=== PATIENT | male | born 1970 | race Caucasian/White ===

== ENCOUNTER 2016-10-02 15:45 | Inpatient (IN) ==
[2016-10-02] MEDS ORDERED: LIDOCAINE 1% (10mg/ml) 30ml SDV INJ INJ ONE ×2 (17:15→17:26)
[2016-10-02] MEDS ORDERED: DiphenhydrAMINE 50 MG/ML INJECTION IVP PRN (17:53)
[2016-10-02] MEDS ORDERED: ONDANSETRON 4 MG/2 ML INJECTION IVP PRN (17:53)
[2016-10-02] MEDS ORDERED: DiphenhydrAMINE 25 MG CAPSULE PO PRN (17:53)
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
--- NOTE | 2016-10-02 18:47 | Pharmacy Consult-Antibiotics ---
Pharmacy Consult-Vancomycin - Consult Information Consult noted by Harris CRUMP to begin vancomyin therapy on Mr Wellington, who is 46 yo and weighs 73.7kg. He has a septic knee. Will begin vancomycin 1 gram IV q8h. Will continue to monitor and make adjustments accordingly. Trough ordered for 10/04/16. Thank you.
[2016-10-02] MEDS: NS 1,000 ML IV SCH (19:15)
[2016-10-02] MEDS: OXYCODONE/APAP 5 MG/325 MG TABLET PO PRN (19:35)
[2016-10-02] MEDS: ACETAMINOPHEN 325 MG TABLET PO SCH (21:52)
[2016-10-03] MEDS: OXYCODONE/APAP 5 MG/325 MG TABLET PO PRN ×4 (03:39→22:54)
--- NOTE | 2016-10-03 07:37 | Orthopedic Progress Note ---
Date: Subjective/Severity of Illness: Aki states his knee is painful, but manageable with available Percocet. Otherwise, he has no other complaints. Cell count of right knee aspirate yesterday only showed 50 neutrophils. No surgery is planned at this time. He is on Vanco, and infectious disease consult has been ordered. WBC are 12.1 today, he is temp is WNL. Orthopedic Objective Vital signs: Temp Pulse Resp BP Pulse Ox 96.5 F L 68 20 113/65 92 10/03/16 00:00 10/03/16 00:00 10/03/16 00:00 10/03/16 00:00 10/03/16 00:00 Height and Weight: Height 5 ft 1.2 in Weight 162 lb 7.691 oz Body Mass Index 30.4 - Constitutional General Appearance: Present: alert, orientated x3, no acute distress - Respiratory Exam Present: non-labored - Cardiovascular Exam Absent: tachycardia Capillary Refill: < 2-3 Seconds - Abdominal Exam Present: soft. Absent: tenderness - Extremities Exam Present: pulses intact - Knee Exam right Knee Exam: Present: tender along joint line (medial retincaculum), ROM (0-130), stable to ligament exam, effusion (minimal). Absent: Valgus deformity, Varus deformity, painful ROM Comments: area of erythema appear the same size as when evaluated yesterday evening. - Integumentary Exam Present: pink, warm, dry, erythema (right prepatellar bursa) - Neurological Exam Present: intact to light touch, no deficits - Labs Result Diagrams: 10/03/16 04:07 10/03/16 04:07 Abnormal lab results 10/03/16 10/03/16 Range/Units 04:07 04:07 WBC 12.1 H (4.5-11.0) T/MM3 Carbon Dioxide 31 H (22-30) MEQ/L H & H 10/03/16 Range/Units 04:07 Hgb 14.0 (13.5-17.5) GM/DL Hct 43.8 (41-53) % Orthopedic Assessment and Plan (1) Septic prepatellar bursitis of right knee Status: Acute Assessment and Plan: infectious disease consult for optimal antibiotic selection continue Vanco until further directed by Dr. Hernadez continue pain management Hospital Course Summary Disclaimer: The visit summary below is not to be considered part of the above Progress Note.
[2016-10-03] MEDS: NS 1,000 ML IV SCH ×3 (08:51→20:14)
[2016-10-03] MEDS: ACETAMINOPHEN 325 MG TABLET PO SCH ×4 (09:12→22:53)
[2016-10-03] MEDS: POLYETHYL GLYCOL 3350 17gm PACKET PO SCH (09:13)
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
[2016-10-03] MEDS: LISINOPRIL 2.5 MG TABLET PO SCH (10:31)
[2016-10-03] MEDS: CEFTRIAXONE 2 GM in NS 100 ML IV SCH (13:39)
[2016-10-03] MEDS: CLOPIDOGREL 75 MG TABLET PO SCH (18:31)
[2016-10-03] MEDS: EZETIMIBE 10 MG TABLET PO SCH (18:31)
[2016-10-03] MEDS: ASPIRIN 325 MG TABLET PO SCH (18:31)
[2016-10-03] MEDS ORDERED: ATORVASTATIN 40 MG TABLET PO SCH (22:00)
[2016-10-03] MEDS: ROSUVASTATIN 20 MG TABLET PO SCH (22:54)
[2016-10-04] MEDS: NS 1,000 ML IV SCH ×3 (04:15→21:52)
[2016-10-04] MEDS: HYDROMORPHONE 2 MG/ML INJECTION IVP PRN ×7 (06:57→16:41)
[2016-10-04] MEDS: LISINOPRIL 2.5 MG TABLET PO SCH (08:59)
[2016-10-04] MEDS: ACETAMINOPHEN 325 MG TABLET PO SCH ×4 (08:59→22:52)
[2016-10-04] MEDS: ASPIRIN 325 MG TABLET PO SCH (08:59)
[2016-10-04] MEDS: POLYETHYL GLYCOL 3350 17gm PACKET PO SCH (08:59)
[2016-10-04] MEDS: CLOPIDOGREL 75 MG TABLET PO SCH (08:59)
[2016-10-04] MEDS: EZETIMIBE 10 MG TABLET PO SCH (09:00)
--- NOTE | 2016-10-04 09:14 | XRay Report ---
Indication: PRE-MRI EXAM PROCEDURE: XR orbit BI for MRI: Encounter: Initial Comparison: None Findings/ Impression: No metallic foreign bodies identified projecting over the orbits. .
[2016-10-04] MEDS ORDERED: SALINE FLUSH 10ml SYRINGE ONE (09:44)
[2016-10-04] MEDS ORDERED: GADOBUTROL 10mMol/10ml INJECTION IVP ONE (09:44)
--- NOTE | 2016-10-04 11:04 | Magnetic Resonance Report ---
Indication: Right knee pain and swelling, concern for possible abscess PROCEDURE: MR knee RT wo/w con: Encounter: Initial Comparison: None Technique: Multiplanar multisequence MR imaging of the right knee was performed with and without contrast. Contrast: 7.5 mL Gadavist Findings: Bone marrow signal intensity is within normal limits. No acute fracture identified. There is significant soft tissue swelling and edema in the lateral and anterior soft tissues overlying the patella. There is also some posterior subcutaneous edema and fluid as well. Muscular signal intensity is within normal limits. There is a small nonenhancing T1 hypointense region at the area of palpable marker in the prepatellar soft tissues on axial postcontrast image #13 measuring 1 x 0.5 cm in size. This extends for 3.5 cm craniocaudally on sagittal image #20.This does not show obvious fluid signal intensity however on the fluid sensitive sequences. Exam was not tailored for evaluation of the ligaments or menisci. The ACL, PCL, MCL and lateral collateral ligament complex are grossly intact. There is evidence of a horizontal tear of the posterior horn medial meniscus. Mild cartilage loss in the medial compartment. Impression: Significant subcutaneous edema overlying the anterior and lateral aspects of the knee at the level of the patella consistent with cellulitis. There is a thin nonenhancing region at the area of indicated clinical concern suspicious for a small abscess as measured above. .
[2016-10-04] MEDS: CEFTRIAXONE 2 GM in NS 100 ML IV SCH (11:23)
--- NOTE | 2016-10-04 12:05 | Orthopedic Progress Note ---
Date: Subjective/Severity of Illness: Overall Mr. Wellington is better on antibiotics still having significant right knee pain. Orthopedic Objective Vital signs: Temp Pulse Resp BP Pulse Ox 96.3 F L 66 16 118/69 96 10/04/16 08:00 10/04/16 08:00 10/04/16 08:00 10/04/16 08:00 10/04/16 08:00 Height and Weight: Height 5 ft 1.2 in Weight 75.5 kg Body Mass Index 30.4 - Constitutional General Appearance: Present: alert, orientated x3 - Respiratory Exam Present: non-labored - Cardiovascular Exam Capillary Refill: < 2-3 Seconds - Abdominal Exam Present: soft. Absent: tenderness - Extremities Exam Present: pulses intact, joint swelling (Right knee pain and swelling) Comments: Bright erythema over the anterior knee with a small pustule present without drainage. The overall erythema globally about the knee has improved but has concentrated more anteriorly. - Knee Exam right Knee Exam: Present: tender along joint line (medial retincaculum), ROM (0-130), stable to ligament exam, effusion (minimal). Absent: Valgus deformity, Varus deformity, painful ROM - Integumentary Exam Present: warm, dry, erythema (right prepatellar bursa) - Neurological Exam Present: intact to light touch, no deficits - Labs Result Diagrams: 10/04/16 04:17 10/04/16 04:17 Abnormal lab results 10/02/16 10/03/16 10/04/16 Range/Units 17:47 11:59 04:17 Carbon Dioxide 31 H (22-30) MEQ/L Creatinine 0.7 L (0.8-1.5) MG/DL C-Reactive Protein 38.3 H (0-9) MG/L Fluid Crystal Appear Cloudy A Fluid Crystal Color Red A Vancomycin Trough (15-20) UG/ML 10/04/16 Range/Units 04:17 Carbon Dioxide (22-30) MEQ/L Creatinine (0.8-1.5) MG/DL C-Reactive Protein (0-9) MG/L Fluid Crystal Appear Fluid Crystal Color Vancomycin Trough 7.08 L (15-20) UG/ML H & H 10/03/16 10/04/16 Range/Units 04:07 04:17 Hgb 14.0 13.6 (13.5-17.5) GM/DL Hct 43.8 42.1 (41-53) % - Diagnostic results Knee MRI: report reviewed, image reviewed Orthopedic Assessment and Plan (1) Septic prepatellar bursitis of right knee Status: Acute Assessment and Plan: MRI is suggestive for a fluid collection. This correlates with his exam today. Because he has not seen significant improvement of his erythema anteriorly with IV antibiotics and with these new imaging results I did recommend incision and drainage of abscess. Due to the patient's discomfort with exam he would like to have this done under general anesthesia. I'm agreeable to this. He is nothing by mouth we will add him on to the schedule to do early this afternoon. I reviewed with him the risks and benefits of the surgery and agree with this plan. (2) Leukocytosis Status: Acute (3) CAD (coronary artery disease) Status: Chronic (4) HTN (hypertension) Status: Chronic (5) Hypercholesterolemia Status: Chronic (6) Tobacco dependence Status: Chronic Hospital Course Summary Disclaimer: The visit summary below is not to be considered part of the above Progress Note.
[2016-10-04] MEDS ORDERED: MIDAZOLAM 2mg/2ml INJECTION ONE (14:54)
[2016-10-04] MEDS ORDERED: FentaNYL 100 MCG/2 ML INJECTION ONE (14:54)
[2016-10-04] MEDS ORDERED: PROPOFOL 500 MG/50 ML VIAL IV ONE (14:54)
--- NOTE | 2016-10-04 15:40 | Post Procedure Note ---
Date of Procedure: 10/04/16 Orthopedic Surgeon: Ambar Orthopedic Assisting Surgeon: Saturnino Delgado Anesthesia: General TIVA Procedure: Procedures Operation Date: 10/04/16 15:00 <No data on this case meets the specified criteria> I&D right knee abscess. Condition: Stable Disposition: floor (resume IV antibiotics. Cultures obtained intra op.)
[2016-10-04] MEDS ORDERED: KETOROLAC 30 MG/ML INJECTION IVP PRN (15:49)
--- NOTE | 2016-10-04 17:03 | Anesthesia Preoperative Report ---
Anesthesia Preoperative Record - Date and Time Date: 10/04/16 Preoperative Diagnosis: Right knee infection Proposed Procedure: right knee I & D NPO Since Date: 10/03/16 NPO Since Time: 23:00 Allergies/Adverse Reactions: Allergies Allergy/AdvReac Type Severity Reaction Status Date / Time No Known Drug Allergies Allergy Verified 10/04/16 08:54 No Known Drug Intolerances AdvReac Verified 10/04/16 09:20 - Vital Signs Vital Signs: Temp Pulse Resp BP Pulse Ox 97.8 F 59 L 15 123/69 97 10/04/16 15:41 10/04/16 16:25 10/04/16 16:25 10/04/16 16:25 10/04/16 16:25 Height and Weight: Height 5 ft 1.2 in Weight 75.5 kg Body Mass Index 30.4 - Medications Inpatient Medications: Current Medications Acetaminophen (Tylenol) 650 mg PO QID [facility] Last Admin: 10/04/16 08:59 Dose: Not Given Aspirin (Asa) 325 mg PO DAILY [facility] Last Admin: 10/04/16 08:59 Dose: Not Given Clopidogrel Bisulfate (Plavix) 75 mg PO DAILY [facility] Last Admin: 10/04/16 08:59 Dose: Not Given Diphenhydramine HCl (Benadryl) 25 mg IVP Q6HR PRN PRN Reason: Itching Diphenhydramine HCl (Benadryl) 25 mg PO Q6H PRN PRN Reason: Itching Ezetimibe (Zetia) 10 mg PO DAILY [facility] Last Admin: 10/04/16 09:00 Dose: Not Given Hydromorphone HCl (Dilaudid) 0.5 - 1 mg IVP Q1H PRN PRN Reason: Pain Last Admin: 10/04/16 12:17 Dose: 1 mg Hydromorphone HCl (Dilaudid) 0.5 mg IVP Q10M PRN PRN Reason: Pain Last Admin: 10/04/16 16:41 Dose: 0.5 mg Sodium Chloride (Normal Saline) 1,000 mls @ 80 mls/hr IV .[id number] [facility] Last Infusion: 10/04/16 11:23 Dose: 80 mls/hr Ceftriaxone Sodium 2 gm/ (Sodium Chloride) 100 mls @ 200 mls/hr IV DAILY [facility] Last Infusion: 10/04/16 11:53 Dose: Infused Vancomycin HCl 2,000 mg/ (Sodium Chloride) 500 mls @ 250 mls/hr IV Q8H [facility] Last Infusion: 10/04/16 16:25 Dose: Infused Ketorolac Tromethamine (Toradol Inj) 30 mg IVP O PRN PRN Reason: Pain Stop: 10/09/16 15:50 Last Admin: 10/04/16 15:58 Dose: 30 mg Lisinopril (Prinivil) 2.5 mg PO DAILY [facility] Last Admin: 10/04/16 08:59 Dose: Not Given Metoprolol Tartrate (Lopressor) 25 mg PO BIDWM [facility] Last Admin: 10/04/16 12:58 Dose: 25 mg Ondansetron HCl (Zofran) 4 mg IVP Q4H PRN PRN Reason: Nausea &/or vomiting Oxycodone/Acetaminophen (Percocet 5/325) 1 - 2 tab PO Q4H PRN PRN Reason: Pain Last Admin: 10/03/16 22:54 Dose: 2 tab Polyethylene Glycol (Miralax) 17 gm PO DAILY [facility] Last Admin: 10/04/16 08:59 Dose: Not Given Rosuvastatin Calcium (Crestor) 40 mg PO HS [facility] Last Admin: 10/03/16 22:54 Dose: 40 mg Home Medications: Home Medications Medication Instructions Recorded Confirmed Type Aspirin 325 mg PO DAILY #0 tab 11/21/14 10/03/16 History Clopidogrel Bisulfate [Plavix] 1 tab PO DAILY #0 11/21/14 10/03/16 History LORazepam [Lorazepam] 1 tab PO TID PRN #0 tab 11/21/14 History Metoprolol Tartrate 25 mg PO BIDWM #0 tab 11/21/14 10/03/16 History Nitroglycerin 0.4 mg SL Q5MIN PRN #0 tab 11/21/14 History Ezetimibe [Zetia] 10 mg PO DAILY 10/03/16 10/03/16 History Lisinopril [Prinivil] 5 mg PO DAILY 10/03/16 10/03/16 History Rosuvastatin Calcium 40 mg PO DAILY 10/03/16 10/03/16 History Is Patient on Beta Greg?: Yes - Medical History Respiratory: DENIES: Asthma Cardiovascular: Reports: Coronary Artery Disease (stents), Hypertension Gastrointestional: DENIES: Gastroesophageal Reflux Disease Other History: DENIES: Anesthesia Reactions - Surgical History Cardiac Surgeries/Treatments: Reports: Other (STENT X2 IN 2014) Anesthesia Reactions: None Hx Family Anesthesia Reaction: No History of Motion Sickness: No - Social History Smoking Status: Current every day smoker (1/2 to 1 PPD) Hx Chewing Tobacco Use: No Substance Use Type: does not use - Pertinent Findings Laboratory: CBC and BMP 10/04/16 04:17 10/04/16 04:17 BMP 10/04/16 04:17 Sodium 140 Potassium 4.3 Chloride 101 Carbon Dioxide 31 H BUN 11.0 Creatinine 0.7 L Glucose 99 Calcium 9.0 EKG Rhythm: Normal Sinus Rhythm - Physical Exam Respiratory Exam: Present: lungs clear Cardiovascular Exam: Present: regular rate and rhythm - Airway Assessment Mallampati Score: II TMD: 3 Fingerbreadths Neck Extension: good Teeth: other (missing teeth, cracked/broken teeth) Overall Assessment: no airway concerns - ASA ASA Score: 2 - Plan Anesthesia: General TIVA - Discussion Discussion: Discussed risks/options/alternatives of anesthesia and questions answered. Patient consents. Nursing pain assessment noted. Present for Discussion: spouse Attestation Statement: Prior to the delivery of any anesthetic medication, I examined the patient, developed the plan, obtained the patient's consent and discussed the risk and benefits of the procedure with the patient/guardian. - Additional Information Seen by Anesthesia: Yes
--- NOTE | 2016-10-04 18:12 | Progress Note ---
Subjective: Pt reports his knee is not much better. Pain, redness is about the same. Denies any f/c, cp or sob. Objective Vital signs: Temp Pulse Resp BP Pulse Ox 98.5 F 57 L 11 111/68 94 10/04/16 16:59 10/04/16 16:55 10/04/16 16:55 10/04/16 16:55 10/04/16 16:55 Weight: 75.5 kg - Constitutional Present: no acute distress, well nourished - Routine HEENT Exam Head: Present: normocephalic, atraumatic Eye: Present: EOMI ENT: Present: mucous membranes moist - Routine Respiratory Exam Present: CTA bilaterally. Absent: wheezes - Routine Cardiovascular Exam Present: RRR, no murmur - Routine Abdominal Exam Present: soft, non distended, non tender - Routine Extremities Exam Present: no edema, joint swelling. Absent: cyanosis, clubbing Comments: right knee erythematous and mildly swollen - Routine Musculoskeletal Exam Musculoskeletal: joint swelling, limited range of motion - Routine Skin Exam Present: intact, dry - Routine Neurological Exam Present: alert, oriented X3 Results - Labs CBC & Chem 7: 10/04/16 04:17 10/04/16 04:17 Assessment and Plan (1) Septic prepatellar bursitis of right knee Current visit: Yes Status: Acute (2) CAD (coronary artery disease) Current visit: Yes Status: Chronic (3) HTN (hypertension) Current visit: Yes Status: Chronic (4) Hypercholesterolemia Current visit: Yes Status: Chronic (5) Tobacco dependence Current visit: Yes Status: Chronic (6) Leukocytosis Current visit: Yes Status: Acute Assessment and Plan: Septic Arthritis -Synovial fluid consistent with infection-->123K WBC, neutrophil 50%, crystal studies and cx pending, gs negative -On IV vanc, added rocephin for G- coverage -Blood cx's NGTD crp/esr elevated -MRI pending today, possibly going to surgery later today? -Less likely gonococcal or inflammatory at this point but will do work up if gs/ cx's negative and pt not improving on abx -Ortho following CAD -Cont. ASA, holding plavix for possible surgery -Cont. metoprolol HTN -Holding Lisinopril d/t possible surgery HLD -Cont. home zetia, crestor Sepsis Assessment - Evaluation Sepsis screening result: No Definite Risk Hospital Course Summary Disclaimer: The visit summary below is not to be considered part of the above Progress Note.
[2016-10-04] MEDS: OXYCODONE/APAP 5 MG/325 MG TABLET PO PRN ×2 (18:33→22:52)
--- NOTE | 2016-10-04 18:34 | Anesthesia Postoperative Note ---
- Date and Time Date: 10/04/16 Time: 17:05 - Status Patient Participated in Evaluation: Patient Participated in Person Vital Signs: Temp Pulse Resp BP Pulse Ox 97.3 F 68 15 126/79 97 10/04/16 17:13 10/04/16 18:13 10/04/16 17:13 10/04/16 18:13 10/04/16 18:13 Respiratory Function: Airway Patent Cardiovascular Function: Regular Pulse EKG Rhythm: Normal Sinus Rhythm Mental Status: Alert and Oriented Pain Intensity: 2 Hydration: IV Infusing Complications During Recover: None Apparent - Follow-Up Instructions Instructions: Per Surgeon
--- NOTE | 2016-10-04 19:17 | Operative Note ---
- Procedure Date of Admission: 10/04/16 Side: right Preoperative Diagnosis: other (septic prepatellar bursitis) Postoperative Diagnosis: Same as preoperative diagnosis. Operation: other (incision and drainage of septic prepatellar bursitis) Surgeon: Maryan Villalta MD Customer Supply Coordinator: ALISIA Macedo Complications: None. Anesthesia: General TIVA Estimated Blood Loss: See Anesthesia Record. Fluids: Please see Anesthesia Record. Description of Procedure: Mr. Wellington in his right knee were identified and marked in the preoperative holding area. He was brought back to the operating suite and placed on the operating table in the supine position. He was placed under general anesthesia and right lower extremity was prepped and draped in normal sterile fashion. Timeout was performed. Patient had a pustule over the anterior knee and began by making a 1 cm incision sharply starting at the special site moving proximally until I encountered flow of fasciitis material. I then took a swab of this material sent for culture. I placed Sara through the incision and there was definitely a pocket approximately 4 cm x 3 cm. I made a second stab incision at the most proximal aspect of this pocket. I then curetted out the pocket. I then irrigated the prepatellar bursa with normal saline first using bulb syringe and then using cystoscopy tubing placing approximately a liter and half of fluid through the wound. I then placed 1 inch iodoform gauze in one incision out the other and tied them to each other. The wound was then dressed with Kerlix and an Hayden wrap the drapes removed and the patient was allowed to awake from general anesthesia and taken recovery room in the care of anesthesia he tolerated procedure well and there were no complications.
[2016-10-04] MEDS: ROSUVASTATIN 20 MG TABLET PO SCH (22:52)
[2016-10-05] MEDS: OXYCODONE/APAP 5 MG/325 MG TABLET PO PRN ×2 (02:53→15:25)
[2016-10-05] MEDS: HYDROMORPHONE 2 MG/ML INJECTION IVP PRN (08:35)
--- NOTE | 2016-10-05 08:51 | Orthopedic Progress Note ---
Date: Subjective/Severity of Illness: Mr. Wellington is alert and oriented this morning in no acute distress. He states his knee pain is improved. Denies fever or chills. Orthopedic Objective Vital signs: Temp Pulse Resp BP Pulse Ox 96.5 F L 58 L 18 122/69 97 10/05/16 07:26 10/05/16 07:26 10/05/16 07:26 10/05/16 07:26 10/05/16 07:26 Height and Weight: Height 5 ft 1.2 in Weight 75 kg Body Mass Index 30.4 - Constitutional General Appearance: Present: alert, orientated x3 - Respiratory Exam Present: non-labored - Cardiovascular Exam Present: pedal pulses intact Capillary Refill: < 2-3 Seconds - Extremities Exam Present: cyanosis, clubbing, joint swelling - Knee Exam right Knee Exam: Present: Valgus deformity, Varus deformity, painful ROM - Surgical Site right anterior knee Surgical Site Comments: Erythema has improved. No drainage from either incision site. Swelling is also improved - Integumentary Exam Present: warm, dry, erythema (right prepatellar bursa) - Neurological Exam Present: intact to light touch, no deficits - Psychiatric Exam Present: alert - Labs Result Diagrams: 10/05/16 04:33 10/05/16 04:33 Abnormal lab results 10/05/16 10/05/16 Range/Units 04:33 04:33 WBC 11.1 H (4.5-11.0) T/MM3 Hgb 13.3 L (13.5-17.5) GM/DL Neut % (Auto) 70.0 H (33-66) % Lymph % (Auto) 16.5 L (23-45) % Wells % (Auto) 9.5 H (0-9.0) % Neut # 7.8 H (1.8-7.7) T/MM3 Wells # 1.1 H (0-0.8) T/MM3 Potassium 5.2 H D (3.6-5) MEQ/L Carbon Dioxide 31 H (22-30) MEQ/L Creatinine 0.7 L (0.8-1.5) MG/DL H & H 10/03/16 10/04/16 10/05/16 Range/Units 04:07 04:17 04:33 Hgb 14.0 13.6 13.3 L (13.5-17.5) GM/DL Hct 43.8 42.1 41.7 (41-53) % Orthopedic Assessment and Plan (1) Septic prepatellar bursitis of right knee Status: Acute Assessment and Plan: Clinically has improved after surgical drainage of the abscess yesterday. We will discharge him today on IV vancomycin. Like to see him in clinic on Friday or he is to call sooner with any problems or concerns. He received a PICC line today. Vancomycin will be managed by [facility]. (2) Leukocytosis Status: Acute (3) CAD (coronary artery disease) Status: Chronic (4) HTN (hypertension) Status: Chronic (5) Hypercholesterolemia Status: Chronic (6) Tobacco dependence Status: Chronic Hospital Course Summary Disclaimer: The visit summary below is not to be considered part of the above Progress Note.
--- NOTE | 2016-10-05 09:03 | Discharge Summary ---
Discharge Plan - Med Rec/Dispo Referrals/Follow Up: Arthur Villalta MD [Physician] - 10/09/16 10:00 am Jesus Instructions: [facility] Ortho Postop Instructions Prescriptions: New Oxycodone/APAP 5/325 [Percocet 5/325] 1 - 2 tab PO Q4H PRN #30 tablet PRN Reason: Pain Continue Aspirin 325 mg PO DAILY #0 tab LORazepam [Lorazepam] 1 tab PO TID PRN #0 tab PRN Reason: ANXIETY Nitroglycerin 0.4 mg SL Q5MIN PRN #0 tab PRN Reason: CHEST PAIN Rosuvastatin Calcium 40 mg PO DAILY Ezetimibe [Zetia] 10 mg PO DAILY Metoprolol Tartrate 25 mg PO BIDWM #0 tab Clopidogrel Bisulfate [Plavix] 1 tab PO DAILY #0 Lisinopril [Prinivil] 5 mg PO DAILY - Disposition 01 Discharged Home, Self-Care
[2016-10-05] MEDS: CLOPIDOGREL 75 MG TABLET PO SCH (10:48)
[2016-10-05] MEDS: ASPIRIN 325 MG TABLET PO SCH (10:48)
[2016-10-05] MEDS: ACETAMINOPHEN 325 MG TABLET PO SCH ×2 (10:49→14:26)
[2016-10-05] MEDS: LISINOPRIL 2.5 MG TABLET PO SCH (10:49)
[2016-10-05] MEDS: EZETIMIBE 10 MG TABLET PO SCH (10:49)
[2016-10-05] MEDS: CEFTRIAXONE 2 GM in NS 100 ML IV SCH (10:50)
[2016-10-05] MEDS: POLYETHYL GLYCOL 3350 17gm PACKET PO SCH (10:59)
--- NOTE | 2016-10-05 11:27 | Progress Note ---
<Zhane Humphrey V - Last Filed: 10/05/16 11:20> Subjective: Aki is seen this morning in follow up consultation. He is preparing to receive a PICC line for outpatient IV antibiotics. He underwent I & D of of septic prepatellar bursitis yesterday afternoon by Dr Villalta. He tolerated this well. Synovial fluid did reveal Staph Aureus. He did have a brief episode of bradycardia overnight while sleeping that decreased to 45 however has maintained 50-80 during hospital stay. No palpitations or chest pain. Denies any other concerns. Objective Vital signs: Temp Pulse Resp BP Pulse Ox 96.5 F L 58 L 18 122/69 97 10/05/16 07:26 10/05/16 07:26 10/05/16 07:26 10/05/16 07:26 10/05/16 07:26 Weight: 75 kg - Constitutional Present: no acute distress, well nourished - Routine HEENT Exam Head: Present: normocephalic, atraumatic Eye: Present: EOMI, PERRL - Routine Respiratory Exam Present: CTA bilaterally - Routine Cardiovascular Exam Present: RRR, S1, S2 - Routine Abdominal Exam Present: soft, normoactive bowel sounds - Routine Extremities Exam Comments: Right knee pain - Routine Musculoskeletal Exam Musculoskeletal: normal strength, other (Right knee pain) - Routine Skin Exam Present: intact, warm - Routine Neurological Exam Present: alert, oriented X3, CN II-XII intact - Routine Psychiatric Exam Present: normal affect, normal thought process Results - Labs CBC & Chem 7: 10/05/16 04:33 10/05/16 04:33 Assessment and Plan (1) Septic prepatellar bursitis of right knee Current visit: Yes Status: Acute (2) Leukocytosis Current visit: Yes Status: Acute (3) CAD (coronary artery disease) Current visit: Yes Status: Chronic (4) HTN (hypertension) Current visit: Yes Status: Chronic (5) Hypercholesterolemia Current visit: Yes Status: Chronic (6) Tobacco dependence Current visit: Yes Status: Chronic (7) Staph aureus infection Current visit: Yes Status: Acute Assessment and Plan: 10/05 Septic Arthritis -Synovial fluid consistent with infection, revealing staph aureus culture. -Continue on On IV vancomycin and Rocephin. Case management did set up outpatient infusion to be performed at [facility] in [place] Patient receiving PICC line currently. CAD -Cont. ASA, Plavix resumed this morning. -Cont. metoprolol, monitor for bradycardia. HTN -Continue with lisinopril HLD -Cont. home zetia, crestor Planning for discharge later today under the care of Dr. Villalta. Patient appears medically stable for discharge Sepsis Assessment - Evaluation Sepsis screening result: No Definite Risk Hospital Course Summary Disclaimer: The visit summary below is not to be considered part of the above Progress Note. Hospital Course: 10/05/16 11:30 10/05 Septic Arthritis -Synovial fluid consistent with infection, revealing staph aureus culture. -Continue on On IV vancomycin and Rocephin. Case management did set up outpatient infusion to be performed at [facility] in [place] Patient receiving PICC line currently. CAD -Cont. ASA, Plavix resumed this morning. -Cont. metoprolol, monitor for bradycardia. HTN -Continue with lisinopril HLD -Cont. home zetia, crestor Planning for discharge later today under the care of Dr. Villalta. Patient appears medically stable for discharge <Mari Gama - Last Filed: 10/05/16 17:03> Objective Vital signs: Temp Pulse Resp BP Pulse Ox 98.6 F 76 18 136/72 97 10/05/16 12:11 10/05/16 12:11 10/05/16 12:11 10/05/16 12:11 10/05/16 12:11 Results - Labs CBC & Chem 7: 10/05/16 04:33 10/05/16 04:33 Assessment and Plan (1) Septic prepatellar bursitis of right knee Current visit: Yes Status: Acute (2) CAD (coronary artery disease) Current visit: Yes Status: Chronic (3) HTN (hypertension) Current visit: Yes Status: Chronic (4) Hypercholesterolemia Current visit: Yes Status: Chronic (5) Tobacco dependence Current visit: Yes Status: Chronic (6) Leukocytosis Current visit: Yes Status: Acute (7) Staph aureus infection Current visit: Yes Status: Acute Assessment and Plan: I have independently evaluated and examined this patient. I reviewed the chart, the patient's history, and the DIRECTOR TELEMETRY's documented findings as above. We discussed and formulated the assessment and plan as above with additions as below: Mr. Wellington was doing well with seen. He reported knee pain is significantly improved after I&D yesterday. He has been able to ambulate and weight-bear on the right leg today. He denied fever overnight. Patient is alert and fully oriented. Respirations are nonlabored with good airflow and clear breath sounds. Cardiac rhythm regular. Discussed with case management-PICC line being placed permit IV antibiotics. To follow-up with Dr. Villalta in the outpatient office. Stable for discharge from my perspective. Hospital Course Summary Disclaimer: The visit summary below is not to be considered part of the above Progress Note.
--- NOTE | 2016-10-08 17:29 | Discharge Summary ---
Orthopedic Discharge Info Date of admission: 10/04/16 12:42 Anticipated date of discharge: 10/05/16 Primary care physician: Kee Abad APRN Attending Physician: Arthur Villalta MD Consults: 10/02/16 17:48 Physician Consult [CONS] Routine Consulting Provider: Sergio Duval Reason For Exam: medical management Ordering Provider has Notified Home Paraprofessional: No 10/02/16 17:54 Case Management Consult [CONS] Routine Reason For Exam: Discharge Planning 10/02/16 17:55 Pharmacy Consult [CONS] Routine Pharmacy Consult: Vancomycin Comment: manage dose and peak/trough 10/03/16 07:21 Physician [Physician Consult] [CONS] Routine Consulting Provider: Nellie Hernadez Reason For Exam: right knee infective prepatellar bursitis Ordering Provider has Notified Home Paraprofessional: No Comment: antibiotic coverage - Discharge Diagnosis (1) Septic prepatellar bursitis of right knee Status: Acute - Laboratory Result Diagrams: 10/05/16 04:33 10/05/16 04:33 Laboratory: H & H 10/03/16 10/04/16 10/05/16 Range/Units 04:07 04:17 04:33 Hgb 14.0 13.6 13.3 L (13.5-17.5) GM/DL Hct 43.8 42.1 41.7 (41-53) % - Microbiology Microbiology 10/03/16 11:56 Peripheral/Iv Start Blood Culture - Final No Growth After 5 Days 10/03/16 11:59 Peripheral/Iv Start Blood Culture - Final No Growth After 5 Days 10/02/16 17:47 Synovial Fluid, Right Knee Gram Stain - Final 10/02/16 17:47 Synovial Fluid, Right Knee Body Fluid Culture - Final No Growth After 5 Days 10/04/16 15:28 Knee, Right Gram Stain - Final 10/04/16 15:28 Knee, Right Abscess Culture - Final Staphylococcus aureus, MRSA Orthopedic Discharge HPI - HPI Elements right anterior knee Pain: throbbing, ache Onset: sudden Radiating: No Severity: moderate Duration: several days How Often Does Pain Occur: constant Previous Surgery: No Previous Injury: No Aggrevated by: squatting, other (kneeling) Associated Symptoms: swelling, warmth, no fever, no chills, no numbness Treatments Tried: pain medications (Percocet), rest Recommendation: other (aspiration of the knee to evaluate for septic arthritis versus infective bursitis.) - HPI Comments Aki Wellington is a pleasent 46 year old male who [place] [facility] [place] admit from [facility]. Aki's chief complaint is right knee pain. Onset was 09/28/16 when he was out in his yard and felt he may have been stuck by a fabiola rojas in the anterior aspect of his right knee. His knee was initially just irritated but began to get red and inflammed 09/30/16. He didn't seek care until 10/02/16 when he presented to Dr. Ilya Borjas at [facility]. Dr. Cruz's admitted him to [facility] and worked him up with knee X-rays, BMP, CRP, CBC with diff, ESR. BMP was unremarkable, CBC showed WBC of 13.6 with 82.0 neutrophils, ESR was 8. According to Dr. Cruz's X- rays were negative for fracture but a puncuate density was noted anterior to the tibial spine. Aspiration was "unsuccessful". Labs were drawn and then Vancomyacin (at 09:30 10/02/16) and Ceftriaxone (at 11:30 10/02/16) was administered. Dr. Gardunos then spoke to ALISIA Encarnacion promotions coordinator and ortho agreed to admit for further evaluation and treatment. Aki states his pain is presently manageable. He did get a Percocet prior to his transfer here. His pain is located in the prepatellar area. He has been able to bear weight consistently since his knee was poked. However, pain has progressively gotten worse since last Friday. He denies any recent open sores , dental work, dysuria, or presence of prosthetic valve. He has not had any previous surgery on his knee. Orthopedic Hospital Course Hospital course: 10/08/16 17:24 Pt was admitted for suspected infected pre patellar bursitis of the right knee. Aspiration of the knee joint was done to r/o joint involvement and those cultures have remained without growth. Pt was given IV antibiotics but the cellulitis was slow to resolve. MRI was done and a small abscess was found in the SQ / bursal tissue over the right knee. It was then decided this should be irrigated out surgically. He was taken to the operating room on 10/04/16 and underwent I&D of the involved prepatellar bursa. A vasiliy drain was placed at the time of surgery. Intra operative cultures were taken. They have grown out Staph A (MRSA) from the abscess site, but NOT from the knee joint. Following surgery, pt was given a PICC line and IV Vancomycin was continued. Appropriate anticoagulants were initiated and SCDs added for DVT prevention. The dressing was clean, and dry at discharge. Pain control was obtained via multimodal approach. Bowel motivation addressed with scheduled and PRN medications. Early mobilization was initiated through PT services. Discharge arrangements made by a collaborative effort between the patient and Case Management. He will get out patient IV vanco in [place]. F/U in orthopedic clinic next week. Follow-up is scheduled next week. Discharge instructions given by orthopedic providers and nursing staff at discharge. Discharge condition was good. 10/08/16 17:32 Ongoing care required?: Yes Comments: F/U 10/09/16 in ortho clinic. Cont IV Vanco at the hospital in [place]. PICC line care per protocol. Discharge Plan - Med Rec/Dispo Referrals/Follow Up: Arthur Villalta MD [Physician] - 10/09/16 10:00 am Jesus Instructions: [facility] [place] Postop Instructions Additional Instructions: GO TO [facility] FOR IV ANTIBIOTICS EVERY 8 HOURS BEGINNING OCTOBER 05 AT 11:00 PM. Prescriptions: New Oxycodone/APAP 5/325 [Percocet 5/325] 1 - 2 tab PO Q4H PRN #30 tablet PRN Reason: Pain Continue Aspirin 325 mg PO DAILY #0 tab LORazepam [Lorazepam] 1 tab PO TID PRN #0 tab PRN Reason: ANXIETY Nitroglycerin 0.4 mg SL Q5MIN PRN #0 tab PRN Reason: CHEST PAIN Rosuvastatin Calcium 40 mg PO DAILY Ezetimibe [Zetia] 10 mg PO DAILY Metoprolol Tartrate 25 mg PO BIDWM #0 tab Clopidogrel Bisulfate [Plavix] 1 tab PO DAILY #0 Lisinopril [Prinivil] 5 mg PO DAILY - Disposition 01 Discharged Home, Self-Care
== END 2016-10-05 17:10 | disposition home or self-care (01) | DRG 549 ==
LOC: PREOBSVTOIN 17:01 → INTOOBSV 17:02 → SRG 17:02
PROVIDERS: ADMIT Orthopaedic Surgery; ATTEND Orthopaedic Surgery

== ENCOUNTER 2017-07-05 04:23 | Inpatient (IN) ==
[2017-07-05] MEDS ORDERED: MORPHINE SULFATE 4mg INJECTION IVP PRN (05:12)
[2017-07-05] MEDS ORDERED: ONDANSETRON 4 MG/2 ML INJECTION IVP PRN (05:12)
[2017-07-05] MEDS ORDERED: NS 1,000 ML IV SCH (05:15)
--- OUTSIDE RECORDS SUMMARY | 2017-07-05 05:34 | External Medical Summary | CCD ---
:1970 Author Name DEANN CASE Address [address], [place] [id number] Care Team Providers Name Role Phone LEONARDA MENDENHALL Attending Physician Unavailable ANDER CAMPOS (Secondary) Physician Unavailable Vital Signs Unknown or Not Available. Allergies Allergy Code Allergy Type Reaction Status No Known Drug 0 No known drug Active Allergies allergies Procedures Unknown or Not Available. History of Immunizations Unknown or Not Available. Problems Unknown or Not Available. Results HEPATIC FUNCTION - Collect Date/Time: 11/09/2015 07:50 Test Name Code Test Result Test Units Test Ref Range AST 18 U/L L=15 H=37 ALT 28 U/L L=12 H=78 ALKALINE PHOS 91 U/L L=46 H=116 TOTAL PROTEIN 7.1 g/dL L=6.4 H=8.2 ALBUMIN 3.6 g/dL L=3.4 H=5.0 TOTAL BILI 0.40 mg/dL L=0.00 H=1.00 DIRECT BILI 0.10 mg/dL L=0.00 H=0.30 LIPID PANEL - Collect Date/Time: 11/09/2015 07:50 Test Name Code Test Result Test Units Test Ref Range CHOLESTEROL 196 mg/dL L=0 H=200 TRIGLYCERIDES 151 mg/dL L=30 H=150 HDL 42 mg/dL L=40 H=60 LDL, CALC 124 mg/dL L=0 H=100 VLDL 30 mg/dL L=0 H=40 CHOL/HDL RISK 4.7 RATIO L=0.0 H=5.0 PT FASTING: YES N/A Active Medications Unknown or Not Available. Medications Administered During Visit Unknown or Not Available. Encounters Encounter Diagnosis Diagnosis Code Start Date Mixed hyperlipidemia E782 11/09/2015 Social History Smoking Status Code Start Date End Date Current every day [id number] smoker Patient Decision Aids Unknown or Not Available. Discharge Instructions You were admitted to [facility] on 11/09/2015 07:51 with a principal diagnosis of Mixed hyperlipidemia You had the following tests done: HEPATIC FUNCTION LIPID PANEL You were discharged from [facility] on 11/09/2015 07:51 Should you have any questions prior to discharge, please contact a member of your healthcare team. If you have left the hospital and have any questions, please contact your primary care physician. Chief Complaint and Reason For Visit Chief Complaint Date of Onset LAB Function Status Unknown or Not Available. Plan of Care Unknown or Not Available. Referral/Transition of Care Unknown or Not Available.
--- OUTSIDE RECORDS SUMMARY | 2017-07-05 05:34 | External Medical Summary | CCD ---
:1970 Author Name DEANN CASE Address [address], [place] [phone] Care Team Providers Name Role Phone LEONARDA MENDENHALL Attending Physician Unavailable ANDER CAMPOS (Secondary) Physician Unavailable Vital Signs Unknown or Not Available. Allergies Allergy Code Allergy Type Reaction Status No Known Drug 0 No known drug Active Allergies allergies Procedures Unknown or Not Available. History of Immunizations Unknown or Not Available. Problems Unknown or Not Available. Results HEPATIC FUNCTION - Collect Date/Time: 06/13/2015 17:05 Test Name Code Test Result Test Units Test Ref Range AST 24 U/L L=15 H=37 ALT 40 U/L L=12 H=78 ALKALINE PHOS 86 U/L L=46 H=116 TOTAL PROTEIN 7.5 g/dL L=6.4 H=8.2 ALBUMIN 3.9 g/dL L=3.4 H=5.0 TOTAL BILI 0.50 mg/dL L=0.00 H=1.00 DIRECT BILI 0.10 mg/dL L=0.00 H=0.30 Active Medications Unknown or Not Available. Medications Administered During Visit Unknown or Not Available. Encounters Encounter Diagnosis Diagnosis Code Start Date Mixed hyperlipidemia E782 06/13/2015 Social History Smoking Status Code Start Date End Date Current every day [id number] smoker Patient Decision Aids Unknown or Not Available. Discharge Instructions You were admitted to [facility] on 06/13/2015 16:58 with a principal diagnosis of Mixed hyperlipidemia You had the following tests done: HEPATIC FUNCTION You were discharged from [facility] on 06/13/2015 16:58 Should you have any questions prior to [...]
--- OUTSIDE RECORDS SUMMARY | 2017-07-05 05:34 | External Medical Summary | CCD ---
:1970 Author Name DEANN CASE Address [address] [place] [address], [place] [phone] Care Team Providers Name Role Phone LEONARDA MENDENHALL Attending Physician Unavailable Vital Signs Unknown or Not Available. Allergies Allergy Code Allergy Type Reaction Status No Known Drug 0 No known drug Active Allergies allergies Procedures Unknown or Not Available. History of Immunizations Unknown or Not Available. Problems Unknown or Not Available. Results HEPATIC FUNCTION - Collect Date/Time: 05/14/2016 08:50 Test Name Code Test Result Test Units Test Ref Range AST 26 U/L L=15 H=37 ALT 43 U/L L=12 H=78 ALKALINE PHOS 82 U/L L=46 H=116 TOTAL PROTEIN 7.1 g/dL L=6.4 H=8.2 ALBUMIN 3.6 g/dL L=3.4 H=5.0 TOTAL BILI 0.50 mg/dL L=0.00 H=1.00 DIRECT BILI 0.10 mg/dL L=0.00 H=0.30 LIPID PANEL - Collect Date/Time: 05/14/2016 08:50 Test Name Code Test Result Test Units Test Ref Range CHOLESTEROL 132 mg/dL L=0 H=200 TRIGLYCERIDES 90 mg/dL L=30 H=150 HDL 54 mg/dL L=40 H=60 LDL, CALC 60 mg/dL L=0 H=100 VLDL 18 mg/dL L=0 H=40 CHOL/HDL RISK 2.4 RATIO L=0.0 H=5.0 PT FASTING: YES N/A Active Medications Unknown or Not Available. Medications Administered During Visit Unknown or Not Available. Encounters Unknown or Not Available. Social History Smoking Status Code Start Date End Date Current every day [id number] smoker Patient Decision Aids Unknown or Not Available. Discharge Instructions You were admitted to [facility] on 05/14/2016 08:41 You had the following tests done: HEPATIC FUNCTION LIPID PANEL You were discharged from [facility] on 05/14/2016 08:42 Should you have any questions prior to [...]
[2017-07-05] MEDS ORDERED: SALINE FLUSH 10ml SYRINGE IV PRN (05:56)
--- NOTE | 2017-07-05 06:12 | History & Physical Report ---
History of Present Illness Date: 07/05/17 Chief complaint: abdomen pain HPI: This is a 47 y/o male with a history of CAD s/p stents 3 years ago on plavix and aspirin. The patient over the past 2 months has been experiencing intermittent episodes of abdomen pain with nausea/vomiting and diarrhea. The patient has been evaluated locally @ [facility] with 2 episodes of ivf and discharge home. Last week he had a CT of his abdomen and pelvis that was reported normal. Tonight the patent's symptoms worsened and he presented to the ED for further evaluation. His plain AAS demonstrated air fluid levels c/w bowel obstruction. (no previous history of bowel surgery). The patient had normal CT last week. Our local surgeon was contacted who agreed to accept this patient but onto a medicine service. The patient has had at least 7# weight loss over the past week. 2 to 3 stools a day, no blood. abdomen cramping with emesis, no blood. Patient describes chills with low grade fever, no sores in the mouth but dry mouth, no chest pains, no cough, no congestion, abd cramping diffuse with emesis. no skin rashes, no focal neuro complaints. At this time he is transferred to [place] for further medical and surgical evaluation. No exposure that he reports to infectious disease. No new meds. It is noted that his UDS is positive for meth, ecstasy, THC. He admits. Review of Systems Review of systems: as outlined above. 12 point ROS otherwise neg. Past Medical History Patient Stated Medical History Coronary Artery Disease Yes: stents Hypertension Yes Asthma No Sleep Apnea No Gastroesophageal Reflux No Disease Hx Renal Disease No Anesthesia Reactions No Clinic Medical History (Last Reviewed 10/16/16 @ 09:05 by Arthur Villalta MD) Anxiety (Acute Medical) Coronary artery disease (Acute Medical) High blood pressure (Acute Medical) High cholesterol (Acute Medical) Past heart attack (Acute Medical) Surgical History: Coronary artery stents-2013 (Dr. Moore),17 Broken Bones, Pins in Wrist ; R Knee cleaning of infection-10/04/16 Family History: Family History (Last Reviewed 10/16/16 @ 09:05 by Arthur Villalta MD) Father Arthritis Heart attack High blood pressure High cholesterol Mother Arthritis Heart attack High blood pressure High cholesterol Family History Updates: as noted. mother alive and okay. father alive with CAD - Social History Smoking status: Current every day smoker (1/2 to 1 PPD) Substance use type: marijuana, amphetamines, hallucinogens Substance last used: days (ago) Alcohol intake: current Alcohol intake frequency: a few times a week Last drink: unknown Housing: house Household members: spouse Current occupational status: employed Current occupational exposures/hazards: Yes Does patient use chewing tobacco?: No Medications Home Medications Medication Instructions Recorded Confirmed Type Aspirin 325 mg PO DAILY #0 tab 11/21/14 07/05/17 History Clopidogrel Bisulfate [Plavix] 75 mg PO DAILY #0 11/21/14 07/05/17 History Metoprolol Tartrate 25 mg PO BIDWM #0 tab 11/21/14 07/05/17 History Nitroglycerin 0.4 mg SL Q5MIN PRN #0 tab 11/21/14 07/05/17 History Ezetimibe [Zetia] 10 mg PO DAILY 10/03/16 07/05/17 History Lisinopril [Prinivil] 5 mg PO DAILY 10/03/16 07/05/17 History Ondansetron [Zofran Odt] 1 tab PO Q4HR 07/05/17 07/05/17 History Allergies Allergy/AdvReac Type Severity Reaction Status Date / Time No Known Allergies Allergy Verified 10/09/16 11:29 Exam Vital Signs: Temperature 97.1 F 07/05/17 05:33 Pulse Rate 64 07/05/17 05:33 Respiratory Rate 20 07/05/17 05:33 Blood Pressure 137/80 07/05/17 05:33 Pulse Oximetry 98 07/05/17 05:33 Telemetry Rhythm: Sinus Rhythm Height/Weight/BMI: Height 1.78 m Weight 72.2 kg Body Mass Index 22.8 - Constitutional Present: mild distress - Routine HEENT Exam Head: Present: normocephalic, atraumatic Eye: Present: EOMI ENT: Present: mucous membranes dry - Routine Neck Exam Present: supple, full ROM - Routine Respiratory Exam Present: CTA bilaterally - Routine Cardiovascular Exam Present: RRR - Routine Abdominal Exam Comments: min tender to palpation. bowel sounds are present - Routine Extremities Exam Present: no edema - Routine Skin Exam Present: intact - Routine Neurological Exam Present: alert, oriented X3 - Routine Psychiatric Exam Present: normal affect, normal thought process Results - Labs CBC & Chem 7: 07/05/17 05:54 07/05/17 05:54 Labs: pending see labs from receiving facility - Imaging and Cardiology Abdominal x-ray Additional comments: AAS reported as air fluid levels concerning for possible sbo Assessment and Plan (1) Ileus Current visit: Yes Status: Acute (2) CAD (coronary artery disease) Current visit: No Status: Chronic (3) HTN (hypertension) Current visit: No Status: Chronic (4) Tobacco dependence Current visit: No Status: Chronic (5) Hypercholesterolemia Current visit: No Status: Chronic (6) Polysubstance abuse Current visit: Yes Status: Acute (7) Hypokalemia Current visit: Yes Status: Acute Assessment and Plan: 1. ileus acute on chronic POA: patient with sig gi sx over the past 2 months. Patient works for the [employer]. He sprays many insectasides. Is it possible exposure. Might be worth checking out which chemicals he is using and perhaps he is getting toxin exposure. I do not think surgical abdomen and doubt obstructed. Check stools for c dif and cx. npo with ice chips for now. Still reasonable to have surgery assess. 2. hypokalemia acute POA: gi loss, replace, recheck 3. polysubstance abuse chronic POA: THC,meth, ecstacy. patient is aware that we are aware. obviously mortgage loan counselor consequences especially with cardiac ds 4. CAD chronic POA: no cardiac concerns. determine meds and continue 5. tobacco abuse chronic POA: mortgage loan counselor to stop. obviously necessary in the setting of cardiac ds JENNY Assessment Ileus - r/o small bowel obstruction Abdominal pain Sapovirus infection Nausea/vomiting/diarrhea Hypernatremia (POA) Hypokalemia (POA) Dehydration CAD HTN HDL Tobacco dependency Polysubstance use Plan Inpatient admission to [facility] for further evaluation and treatment of suspected small bowel obstruction. Anticipate greater than 2 midnights of care needed. NPO for bowel rest. IVF for hydration - will use 1/2NS with 20KCl at 100cc/hr. Protonix 40mg IV daily for GI protection. Control pain and nausea. Sx Consult for evaluation of possible SBO. Will recheck CT ab/pelvis secondary to concern for SBO. Recheck KUB/Upright in am. SCD for DVT protection. Supportive treatment for Sapovirus infection - contributing to acute symptoms, but do not feel this is etiology of the problems he has been having for past 2 month. Inflammatory bowel disease is considered as etiological agent. Polysubstance use definitely contributing. Monitor lab. Full code as per his requests. Care to return to [facility] at time of discharge from [facility]. DVT Prophylaxis: SCD's, Lovenox GI Prophylaxis: Protonix Resuscitation Status: Full Code - Time spent with patient Time with patient PN: 30 minutes - Physician Narrative Physician: Lee Alvarado MD Narrative: Date: 07/05/17 Time: 1114 Jenny I have independently interviewed and examined pt. Chart reviewed. Cased discussed with Sx and pt's . Reviewed above note and concur. CC: Ab pain. N/V/D. HPI: 47 y/o male presents to local ED secondary to increasing ab pain with N/V/ D. Has been having abdominal problems for the last 2 months-intermittent N/V/D. Oral intake has been decreased. Chills. Has had several ED visits locally and received IVF which would improve his hydration, but symptoms would return several days later. 1 week ago was seen and had CT ab/pelvis reported as normal. On return today, KUB showing air/fluid levels with concern for ileus. Transfer to [facility] for further evaluation and treatment. Currently, patient resting soundly in bed- at bedside and history obtained from her. reports pt used to drink a lot, but not currently-has no knowledge of any substance use. PMHx: CAD with Hx VA/Stents, HTN, HDL, OA ALL: NKDA MEDS: ASA, Plavix, Metoprolol 25mg BID, Lisinopril 5mg daily, Zetia 10mg daily, NTG prn, Zofran prn SHx: x 8 years (with for 20 years), Smokes, lives in [facility] PCP FHX: Father-CAD/HTN/HDL/OA. Mother-CAD/HTN/HDL/OA ROS: as in HPI - remainder limited secondary to patient's somnolence EXAM GEN: WDWN thin male, somnolent HEENT: NC/AT MM dry Neck: supple, midline CV: tachy, regular no murmur Lungs: Clear bilaterally, no distress on RA AB: soft, slight distention BS present EXT: thin and without edema Psych: pt somnolent Neuro: not able to assess secondary to somnolency Skin: warm and dry Assessment Ileus - r/o small bowel obstruction Abdominal pain Sapovirus infection Nausea/vomiting/diarrhea Hypernatremia Hypokalemia Dehydration CAD HTN HDL Tobacco dependency Plan Inpatient admission to [facility] for further evaluation and treatment of suspected small bowel obstruction. Anticipate greater than 2 midnights of care needed. NPO for bowel rest. IVF for hydration - will use 1/2NS with 20KCl at 100cc/hr. Protonix 40mg IV daily for GI protection. Control pain and nausea. Sx Consult for evaluation of possible SBO. Will recheck CT ab/pelvis secondary to concern for SBO. Recheck KUB/Upright in am. SCD for DVT protection. Supportive treatment for Sapovirus infection - contributing to acute symptoms, but do not feel this is etiology of the problems he has been having for past 2 month. Inflammatory bowel disease is considered as etiological agent. Polysubstance use definitely contributing. Full code as per his requests. Care to return to [facility] at time of discharge from [facility]> Hospital Course Summary Disclaimer: The visit summary below is not to be considered part of the above Progress Note. Hospital Course: 07/05/17 Admission Inpatient admission to [facility] for further evaluation and treatment of suspected small bowel obstruction. Anticipate greater than 2 midnights of care needed. NPO for bowel rest. IVF for hydration - will use 1/2NS with 20KCl at 100cc/hr. Protonix 40mg IV daily for GI protection. Control pain and nausea. Sx Consult for evaluation of possible SBO. Will recheck CT ab/pelvis secondary to concern for SBO. Recheck KUB/Upright in am. SCD for DVT protection. Supportive treatment for Sapovirus infection - contributing to acute symptoms, but do not feel this is etiology of the problems he has been having for past 2 month. Inflammatory bowel disease is considered as etiological agent. Polysubstance use definitely contributing. Monitor lab. Full code as per his requests. Care to return to [facility] at time of discharge from [facility].
[2017-07-05] MEDS: 1/2 NS with KCL 20mEq 1,000 ML IV SCH ×2 (10:18→21:19)
[2017-07-05] MEDS ORDERED: SALINE FLUSH 10ml SYRINGE ONE (11:20)
[2017-07-05] MEDS ORDERED: IOHEXOL 300mg/ml 100ml INJECTION ONE (11:20)
[2017-07-06] MEDS: 1/2 NS with KCL 20mEq 1,000 ML IV SCH ×2 (08:45→14:31)
[2017-07-06 09:42] VITALS: RESP 16
--- NOTE | 2017-07-06 09:46 | XRay Report ---
Indication: Ilius vs SBO PROCEDURE: XR abdomen 2V: Encounter: Initial Comparison: CT abdomen dated July 05, 2017 Findings: Administered contrast material is now seen throughout the colon. No abnormally dilated small bowel loops appreciated. No free air. Impression: Nonobstructive nonspecific bowel gas pattern. .
--- NOTE | 2017-07-06 09:51 | CT Scan Report ---
Indication: Eval ileus vs SBO, Pt with gastroenteritis PROCEDURE: CT abdomen pelvis w con: Encounter: Initial Comparison: None Technique: Axial CT images were performed through the abdomen and pelvis after the administration of intravenous contrast. Coronal and sagittal two-dimensional reformats. Automated Exposure Control and Iterative Reconstruction dose reducing techniques were utilized. Contrast: Omnipaque 300 89 mL Findings: The lung bases are clear. The liver is normal. Gallbladder is unremarkable. The spleen, pancreas, adrenal glands and kidneys are within normal limits. No abdominal or pelvic lymphadenopathy. Bladder is normal. Prostate and rectum are normal. Diffusely fluid-filled small and large bowel. No transition point identified. There are some more prominent small bowel loops in the right abdomen measuring up to 3.8 cm in diameter. Bone windows negative for acute findings. Impression: Generalized dilatation of small and large bowel could represent ileus or gastroenteritis. No findings of high-grade obstruction. There is a preliminary report by [facility]. .
--- NOTE | 2017-07-06 11:54 | Progress Note ---
- Date 07/06/17 Subjective: Aki is seen today in follow up for abdominal pain. Complains of some mild abdominal discomfort in upper abdomen, denies nausea or vomiting. He has been taking clear liquids and reports he is hungry. Denies shortness of breath or coughing. Noted to be bradycardic overnight in the 45-58. 12 lead EKG unremarkable. Objective Vital signs: Temperature 97.3 F 07/06/17 08:00 Pulse Rate 49 L 07/06/17 08:00 Respiratory Rate 16 07/06/17 08:00 Blood Pressure 140/81 H 07/06/17 08:00 Pulse Oximetry 99 07/06/17 08:00 Rhythm: Sinus Bradycardia Height/Weight/BMI: Height 1.78 m Weight 73.1 kg Body Mass Index 22.8 - Constitutional Present: no acute distress, well nourished, well developed - Routine HEENT Exam Eye: Present: EOMI ENT: Present: mucous membranes moist, dentition normal - Routine Respiratory Exam Present: CTA bilaterally. Absent: wheezes - Routine Cardiovascular Exam Present: RRR. Absent: murmur - Routine Abdominal Exam Present: soft, normoactive bowel sounds, non distended, non tender. Absent: tenderness - Routine Extremities Exam Present: full ROM - Routine Back/Spine/Pelvis Exam Back/Spine: Present: full ROM - Routine Skin Exam Present: intact, dry, warm - Routine Neurological Exam Present: alert, oriented X3, CN II-XII intact, moving all extremities - Routine Lymphatic Exam Lymphatic: Absent: adenopathy - Routine Psychiatric Exam Present: normal affect, cooperative Results - Labs CBC & Chem 7: 07/06/17 04:15 07/06/17 04:15 Assessment and Plan (1) CAD (coronary artery disease) Current visit: No Status: Chronic (2) HTN (hypertension) Current visit: No Status: Chronic (3) Hypercholesterolemia Current visit: No Status: Chronic (4) Tobacco dependence Current visit: No Status: Chronic (5) Ileus Current visit: Yes Status: Acute (6) Polysubstance abuse Current visit: Yes Status: Acute (7) Hypokalemia Current visit: Yes Status: Acute Assessment and Plan: Impression Ileus - r/o small bowel obstruction Abdominal pain Sapovirus infection Nausea/vomiting/diarrhea Hypernatremia (POA) Hypokalemia (POA) Dehydration CAD HTN HDL Tobacco dependency Polysubstance use Plan Will advance diet as tolerated, recommended bland CT abd revels no acute obstruction or free air. KUB X-ray this morning revels stool and air with non-obstructive pattern Will monitor telemetry given bradycardia SCD for DVT protection Encourage ambulation TID Encourage tobacco and polysubstance cessation DVT Prophylaxis: SCD's Resuscitation Status: Full Code - Time spent with patient Time with patient PN: 25 minutes - Physician Narrative Physician: Lee Alvarado MD Narrative: Date: 07/06/17 Time: 1425 Have independently interviewed and examined pt. Chart reviewed. Case discussed with my BIN PACKER. Care plan developed with my supervision; agree with above. Doing okay. Notes some rumbling and grumbling in abdomen. Passing flatus. Did has some loose stool. No nausea or dyspepsia. Appetite improved. No f/c. Lungs: clear CV: regular AB: soft nt/nd BS decreased EXT: thin, no edema MSE: awake alert Plan: Diet advanced by Sx, will decrease IVF to 50cc/hr. Restart lisinopril- hold BB due to bradycardia. Could restart ASA/Plavix tomorrow. Encourage ambulation. Page out to Sx to discuss possible endoscopic procedures. Hospital Course Summary Disclaimer: The visit summary below is not to be considered part of the above Progress Note. Hospital Course: 07/05/17 Admission Inpatient admission to [facility] for further evaluation and treatment of suspected small bowel obstruction. Anticipate greater than 2 midnights of care needed. NPO for bowel rest. IVF for hydration - will use 1/2NS with 20KCl at 100cc/hr. Protonix 40mg IV daily for GI protection. Control pain and nausea. Sx Consult for evaluation of possible SBO. Will recheck CT ab/pelvis secondary to concern for SBO. Recheck KUB/Upright in am. SCD for DVT protection. Supportive treatment for Sapovirus infection - contributing to acute symptoms, but do not feel this is etiology of the problems he has been having for past 2 month. Inflammatory bowel disease is considered as etiological agent. Polysubstance use definitely contributing. Monitor lab. Full code as per his requests. Care to return to [facility] at time of discharge from [facility]. 07/06/17 Will advance diet as tolerated, recommended bland CT abd revels no acute obstruction or free air. KUB X-ray this morning revels stool and air with non-obstructive pattern Will monitor telemetry given bradycardia SCD for DVT protection Encourage ambulation TID Encourage tobacco and polysubstance cessation
[2017-07-06] MEDS ORDERED: BISACODYL 10 MG SUPPOSITORY RECTALLY PRN (13:48)
[2017-07-06] MEDS ORDERED: ACETAMINOPHEN 325 MG TABLET PO PRN (13:48)
[2017-07-06] MEDS ORDERED: MAG-AL + SIM ORAL LIQUID 30ml PO PRN (13:49)
[2017-07-06] MEDS: LISINOPRIL 5 MG TABLET PO SCH (14:52)
[2017-07-06] MEDS: EZETIMIBE 10 MG TABLET PO SCH (14:52)
[2017-07-06] MEDS: NICOTINE 21 MG PATCH TD SCH (18:23)
[2017-07-07] MEDS: 1/2 NS with KCL 20mEq 1,000 ML IV SCH ×2 (01:11→10:08)
[2017-07-07 08:00] VITALS: BP 114/68; TEMP 96.9; O2SAT 98
[2017-07-07] MEDS ORDERED: ASPIRIN 81 MG CHEWABLE TABLET PO SCH (09:00)
[2017-07-07] MEDS ORDERED: NICOTINE PATCH REMOVAL TD SCH (09:00)
[2017-07-07] MEDS ORDERED: ASPIRIN 325 MG TABLET PO SCH (09:00)
[2017-07-07] MEDS ORDERED: CLOPIDOGREL 75 MG TABLET PO SCH (09:00)
[2017-07-07] MEDS: EZETIMIBE 10 MG TABLET PO SCH (09:18)
[2017-07-07] MEDS: LISINOPRIL 5 MG TABLET PO SCH (09:18)
[2017-07-07] MEDS: NICOTINE 21 MG PATCH TD SCH (09:20)
[2017-07-07 09:53] VITALS: PULSE 54
--- NOTE | 2017-07-07 10:32 | Discharge Summary ---
Discharge Information Date of admission: 07/05/17 05:32 Anticipated date of discharge: 07/07/17 Attending Physician: Lee Alvarado MD Primary care physician: Kee Abad APRN Consults: Physician Consult [CONS] Routine Consulting Provider: Aki Broussard - Discharge Diagnosis (1) Ileus Status: Acute (2) Hypokalemia Status: Resolved Discharge diagnosis Ileus, Nausea/vomiting/diarrhea, & Abdominal pain secondary to Sapovirus infection - improving SBO suspected at admission - ruled out Associated conditions and complications Hypernatremia (POA) - resolved Hypokalemia (POA) - resolved Dehydration - resolved CAD HTN HDL Tobacco dependency Polysubstance use - Laboratory Labs: 07/07/17 03:59 07/07/17 03:59 - Radiology Radiology: Date of Exam: 07/05/17 PROCEDURE: CT abdomen pelvis with contrast: Findings: The lung bases are clear. The liver is normal. Gallbladder is unremarkable. The spleen, pancreas, adrenal glands and kidneys are within normal limits. No abdominal or pelvic lymphadenopathy. Bladder is normal. Prostate and rectum are normal. Diffusely fluid-filled small and large bowel. No transition point identified. There are some more prominent small bowel loops in the right abdomen measuring up to 3.8 cm in diameter. Bone windows negative for acute findings. Impression: Generalized dilatation of small and large bowel could represent ileus or gastroenteritis. No findings of high-grade obstruction. = = = = = = = = = = = = = = = = = = = = = = = = = = = = = = = = = = = = = = = = = = = = = = = = = = = = = = = = = = = Date of Exam: 07/06/17 PROCEDURE: XR abdomen 2V: Findings: Administered contrast material is now seen throughout the colon. No abnormally dilated small bowel loops appreciated. No free air. Impression: Nonobstructive nonspecific bowel gas pattern. History of Present Illness HPI: This is a 47 y/o male with a history of CAD s/p stents 3 years ago on Plavix and aspirin. The patient over the past 2 months has been experiencing intermittent episodes of abdomen pain with nausea/vomiting and diarrhea. The patient has been evaluated locally @ [facility] with 2 episodes of ivf and discharge home. Last week he had a CT of his abdomen and pelvis that was reported normal. Tonight the patent's symptoms worsened and he presented to the ED for further evaluation. His plain AAS demonstrated air fluid levels c/w bowel obstruction. (no previous history of bowel surgery). The patient had normal CT last week. Our local surgeon was contacted who agreed to accept this patient but onto a medicine service. The patient has had at least 7# weight loss over the past week. 2 to 3 stools a day, no blood. abdomen cramping with emesis, no blood. Patient describes chills with low grade fever, no sores in the mouth but dry mouth, no chest pains, no cough, no congestion, abd cramping diffuse with emesis. no skin rashes, no focal neuro complaints. At this time he is transferred to [place] for further medical and surgical evaluation. No exposure that he reports to infectious disease. No new meds. It is noted that his UDS is positive for meth, ecstasy, THC. He admits. Objective Vital signs: Temperature 96.9 F 07/07/17 08:00 Pulse Rate 54 L 07/07/17 08:00 Respiratory Rate 16 07/07/17 08:00 Blood Pressure 114/68 07/07/17 08:00 Pulse Oximetry 98 07/07/17 08:00 Rhythm: Sinus Bradycardia Height/Weight/BMI: Height 1.78 m Weight 73.4 kg Body Mass Index 22.8 - Constitutional Present: no acute distress, well nourished, well developed, thin - Routine HEENT Exam Head: Present: normocephalic Eye: Present: PERRL. Absent: conjunctival icterus, scleral injection ENT: Present: mucous membranes moist - Routine Respiratory Exam Present: CTA bilaterally - Routine Cardiovascular Exam Present: RRR, S1, S2, bradycardia - Routine Abdominal Exam Present: soft, normoactive bowel sounds, non tender, distended (minimally) - Routine Extremities Exam Present: no edema, pulses intact - Routine Back/Spine/Pelvis Exam Back/Spine: Present: full ROM - Routine Skin Exam Present: intact, dry, warm - Routine Neurological Exam Present: alert, oriented X3, normal speech - Routine Psychiatric Exam Present: normal affect, normal thought process, cooperative Hospital Course This is a general summary of the patient's hospital course. For more details refer to the complete medical record. Hospital course: 07/05/17: Inpatient Admission for suspected SBO IVF were started for hydration, hypernatremia, hypokalemia, & mild hypercalcemia. He was made NPO for bowel rest. He received Protonix IV. Dr. Broussard was consulted. GI panel was positive for Sapovirus infection, but this is likely unrelated to the problems he's been having for the last 2 months. 07/06/17 Improving; diet was advanced. IVF rate reduced. Electrolytes returned to normal values. Telemetry initiated due to bradycardia with rates as low as 45. Metoprolol placed on hold with improvement in HR to upper 50s-low 60s. Lisinopril was restarted. Dr. Broussard recommends upper/lower scopes after he's recovered from acute GI illness and after he's been cleared by Dr. Moore. 07/07/17: Discharge Abdominal symptoms nearly completely resolved: tolerating regular diet. Diarrhea has resolved. CBC and BMP unremarkable. Discussed the importance of good handwashing. Counseled on eliminating illicit drugs. An appt has already been set up with Dr. Moore for cardiac clearance before scheduling scope with Dr. Broussard. He will need to be off Plavix x1 week and ideally would decrease ASA to 81 mg daily. STOP metoprolol. F/U with Maryan Abad in 1 week. Discharged home in stable condition. Return to work on 07/10/17. Time spent with patient: discharge greater than 30 minutes Resuscitation Status: Full Code Discharge Plan - Discharge Disposition Discharge Date: 07/07/17 Disposition: Discharged Home, Self-Care *Condition: Stable Reason For Visit (Visit label in EMR): Sapovirus infection - Discharge Medications *Discharge Medications: New Aspirin [ASA] 325 mg PO DAILY #30 tab Continue Nitroglycerin 0.4 mg SL Q5MIN PRN #0 tab PRN Reason: CHEST PAIN Ezetimibe [Zetia] 10 mg PO DAILY Clopidogrel Bisulfate [Plavix] 75 mg PO DAILY #0 Lisinopril [Prinivil] 5 mg PO DAILY Ondansetron [Zofran Odt] 1 tab PO Q4HR Discontinued Aspirin 325 mg PO DAILY #0 tab Metoprolol Tartrate 25 mg PO BIDWM #0 tab - Discharge Packet/Instructions *Diet: [place] diet; increase fluid intake (water, gatorade). *Activity: Wash hands frequently. Return to work on 07/10/17. *Pain Management/Treatment: Tylenol if needed. *Wound Care: not applicable Additional Instructions: Abstain from using any substances that affect your body 's health and recovery. Continue Aspirin 325 mg and Plavix for now, but you will likely need to stop Plavix a week before your scopes, and, if ok with Dr. Moore, decrease aspirin dose to 81 mg daily for the week before. *Expected Signs/Symptoms: You still may have intermittent abdominal pain and/or diarrhea. You may feel fatigued from your hospital stay. *Notify Physician if: Fever, increased abdominal pain, bloody stools, vomiting, or any new symptoms such as passing out, difficulty breathing, chest pain, or stroke-like symptoms. *During Business Hours Contact: Kee Abad APRN. Dr. Broussard - for scope questions. Dr. Moore - for heart questions *After Business Hours Contact: The on-call provider for the Kee Abad, Dr. Broussard, or Dr. Moore. *Pending Lab/Results: No Pending Lab - Referrals/Follow Up *Referrals/Follow Up: Rikki Moore MD [Physician] - 07/15/17 10:30 am Kee Abad APRN [Primary Care Provider] - 07/14/17 10:00 am Aki Broussard MD [Physician] - 07/24/17 1:15 pm () - Patient Handouts Patient Handouts: Bowel Obstruction (DC) - Dismissal Complete Discharge Instructions are:: Complete Physician Narrative - Narrative Physician: Lee Alvarado MD Attestation Narrative: Date: 07/07/17 Time: 1120 Have independently interviewed and examined patient prior to discharge. Chart reviewed. Case discussed with my SENIOR INFRASTRUCTURE ENGINEER. Care plan developed with my supervision; agree with above. Doing well. Bowels moving-not having ab pain/bloating. No nausea. Eating well. Breathing well. Lungs: clear CV: regular AB: soft flat nt/nd +BS Ext: No edema. MSE: awake alert appropriate Plan: Medically stable for discharge to home. Will hold BB due to bradycardia- pt to F/U with Cardiology in near future for evaluation. Anticipate EGD/ Colonoscopy in near future due to abdominal symptoms. Advised substance avoidance. See orders for details. Medically stable for discharge to home.
[2017-07-07 10:41] VITALS: BMI 23.2
--- NOTE | 2017-07-07 10:53 | Work/School Release ---
Work/School Release - Date Date: 07/07/17 - Work Release Excused for:: Acute illness requiring hospitalization from 07/05/17 until 07/07/17. May return to work on:: July 10. Restrictions:: None, though will need follow up appointments. May resume normal activity on:: 07/10/17
--- NOTE | 2017-07-08 19:05 | Consultation ---
DATE OF CONSULTATION 07/05/2017 CONSULTING PHYSICIAN Aki Broussard MD REQUESTING PHYSICIAN Lee Alvarado MD REASON FOR CONSULTATION Bowel obstruction. IMPRESSION 1. Ileus - I do not see evidence of a bowel obstruction based on his CT results. 2. Viral gastroenteritis with Sapovirus detected. 3. Polysubstance abuse. 4. Coronary artery disease status post stenting. 5. Daily use of Plavix. RECOMMENDATIONS 1. I did recommend and ordered a CT scan of the abdomen and pelvis with IV and oral contrast. This was performed earlier today to help with the consultation. 2. Begin with clear liquid diet. 3. I do not see need of current surgical intervention. HISTORY OF PRESENT ILLNESS Aki is a 47-year-old male who was transferred from [facility] in [place] after a KUB had shown dilated bowel loops consistent with a small-bowel obstruction. The patient relates over the last couple of months he has had vomiting on multiple occasions. He will have vomiting until all of his fluids have been expelled. He had an episode of abdominal pain restart last night after supper. He had to go lie down because of the pain and he said the pain was intense. He rated it 8-10/10 in severity. It was located throughout the entire abdomen. The patient did have vomiting. He has not seen any blood with his emesis or with his stools. He currently rates his pain 3/10 in severity. PAST MEDICAL HISTORY 1. Coronary artery disease status post stenting. 2. Hypertension. 3. Anxiety. 4. Hypercholesterolemia. 5. Myocardial infarction. PAST SURGICAL HISTORY 1. Coronary artery stenting - [address] Moore. 2. Multiple orthopedic procedures including pinning of the wrist. 3. Incision and drainage of septic prepatellar bursitis - 10/04/2016. FAMILY HISTORY Father and mother had arthritis, heart attack, high blood pressure, hypercholesterolemia. SOCIAL HISTORY The patient is a current every-day smoker that smokes around one-half pack per day. He does use multiple illegal drugs including marijuana regularly and amphetamines when tired or with partying. This amounts to a couple of times a month. He has also used hallucinogens. He does drink alcohol a few times per week. He is . He has four biologic children in addition to stepchildren. He does have increased stress given a son who is autistic. REVIEW OF SYSTEMS Ten-point review of systems was negative except for History of Present Illness and the following: GENERAL: He has had a 7-pound weight loss over the past week. GASTROINTESTINAL: He is having two to three stools per day. HEMATOLOGIC: He is on Plavix. PHYSICAL EXAMINATION GENERAL: The patient is awake and alert, in no acute distress. HEENT: Sclerae clear. Extraocular muscles intact. NECK: Supple with a midline trachea. No lymphadenopathy or thyromegaly are noted. HEART: Regular rate and rhythm. LUNGS: Clear to auscultation bilaterally. ABDOMEN: Soft, minimally tender, nondistended. No guarding or rebound are noted. EXTREMITIES: No clubbing, cyanosis or edema. NEUROLOGIC: Cranial nerves II-XII are grossly intact. PSYCHIATRIC: Normal mood and affect. VITAL SIGNS: Temperature 99.7, pulse 76, blood pressure 135/84, respiratory rate 20, oxygen saturation 95% on room air. LABORATORY DATA White blood cell count 17.0 with 96% neutrophils. Potassium 3.3. GI panel showed sapovirus in the stool sample. IMAGING The preliminary radiology report was reviewed and showed findings consistent with gastroenteritis with some dilated small and large bowel. PATIENT EDUCATION I did review my clinical impression with Aki. He had opportunity to ask questions. He was fine with no surgical intervention. Thank you for allowing me to participate in Aki's care. I will follow along with you. SUSSY
--- NOTE | 2017-07-08 19:11 | Progress Note ---
DATE OF VISIT 07/06/2017 REASON FOR VISIT Follow ileus and gastroenteritis. SUBJECTIVE Aki has tolerated a clear liquid diet along with some regular food for lunch. He denies any significant change in his abdominal symptoms and still feels fairly well currently. He has not had any vomiting. OBJECTIVE VITAL SIGNS: Afebrile with stable vitals on room air. GENERAL: The patient is awake and alert, in no acute distress. ABDOMEN: Soft, minimally tender, nondistended. LABORATORY DATA White blood cell count 7.6. IMAGING Abdominal x-ray had shown the oral contrast material has passed into the colon. His bowel gas pattern was nonspecific. IMPRESSION 1. Gastroenteritis. 2. History of abdominal pain and vomiting as well as diarrhea. 3. Coronary artery disease on Plavix. PLAN 1. I think that Aki could be dismissed home. 2. Given his two-month history of abdominal complaints, I do think that upper and lower endoscopy should be performed. I explained that he was nearly due for screening colonoscopy based on age alone. With his episodes of vomiting and the abdominal pain that he has been experiencing, I do think that esophagogastroduodenoscopy should be performed as well. I would like to perform this about six weeks from now so that his gastroenteritis has a chance to fully resolve before putting him through endoscopic procedures. 3. He will need cardiac clearance from Dr. Moore before the procedures, given his cardiac history. He is due to see Dr. Moore this coming week already. 4. I advised him to try a bland diet with bananas, rice, applesauce, and toast. PATIENT EDUCATION The details, risks and benefits of esophagogastroduodenoscopy and colonoscopy were discussed with the patient and his who was present. The discussion included but was not limited to bleeding, perforation requiring surgical repair , missed lesions, aspiration, cardiac events, and complications of anesthesia. He voiced understanding and did wish to proceed with endoscopies in six weeks. SUSSY
== END 2017-07-07 11:40 | disposition home or self-care (01) | DRG 392 ==
LOC: SRG 05:32 → SUATTDRO 05:32
PROVIDERS: ADMIT Emergency Medicine; ATTEND Hospitalist